=== PATIENT | male | born 1985 | race Caucasian/White ===

== ENCOUNTER 2020-08-06 11:11 | Emergency (ER) | payer SELFPAY ==
[~2020-08-06] VITALS: Ht 185.4 cm; Wt 79.4 kg
--- NOTE | 2020-08-06 11:21 | NUR ---
Dr Cifuentes at the bedside for MSE.
[2020-08-06 11:31] VITALS: BP 142/98
--- NOTE | 2020-08-06 11:31 | NUR ---
Patient discharged to home in stable condition. Written and verbal after care instructions given. Patient verbalizes understanding of instructions. Stressed follow up or return to ER for worsening s/s.
== END 2020-08-06 11:31 | disposition home or self-care (01) ==
LOC: ER 11:11
DX: S61.451A Open bite of right hand, initial encounter (principal); L08.9 Local infection of the skin and subcutaneous tissue, unspecified; W55.01XA Bitten by cat, initial encounter; Y92.89 Other specified places as the place of occurrence of the external cause
CPT/HCPCS: A4663